=== PATIENT | male | born 1955 | race Caucasian/White ===

== ENCOUNTER 2017-04-20 23:57 | Emergency (ER) | payer OTHER ==
[~2017-04-20] VITALS: Ht 182.9 cm; Wt 90.0 kg
[2017-04-20 23:57] VITALS: BP 139/94
[2017-04-21] MEDS ORDERED: HYDROcodone/APAP 5/325 TABLET PO ONE (01:00)
[2017-04-21] MEDS ORDERED: HYDROcodone/APAP 5/325 TABLET ONE (01:28)
== END 2017-04-21 02:46 | disposition home or self-care (01) ==
LOC: ED 04-21 00:54
DX: S92.001A Unspecified fracture of right calcaneus, initial encounter for closed fracture (principal); W17.89XA Other fall from one level to another, initial encounter; Y93.89 Activity, other specified; Y92.89 Other specified places as the place of occurrence of the external cause; Y99.8 Other external cause status
CPT/HCPCS: 29515; 99284